=== PATIENT | male | born 1975 | race African-American/Black ===

== ENCOUNTER 2019-11-26 00:18 | Emergency (ER) | payer MEDICAID ==
[~2019-11-26] VITALS: Ht 185.4 cm; Wt 104.5 kg
[2019-11-26 02:10] VITALS: BP 149/91
== END 2019-11-26 02:16 | disposition home or self-care (01) ==
LOC: EMS 00:19
DX: F10.239 Alcohol dependence with withdrawal, unspecified (principal); J45.909 Unspecified asthma, uncomplicated; Z59.0 Homelessness